=== PATIENT | female | born 1940 ===

== ENCOUNTER 2018-01-14 17:03 | Outpatient (CLI) | payer MEDICARE ==
[2018-01-14 17:29] LABS: Bilirubin Negative (Negative); Blood, Urine Moderate (Negative); Clarity Clear (Clear); Glucose, Urine (Dipstick) Negative (Negative); Leukocyte Negative (Negative); Nitrite Negative (Negative); Protein, Urine (Dipstick) Negative (Neg-Trace); Specific Gravity, Urine 1.015 (1.005-1.030); Urobilinogen 0.2 mg/dL (0.2-1.0)
[2018-01-14 17:52] LABS: Bacteria/HPF Rare-Few HPF (None Seen); Crystals/HPF 2+ AMORPH PHOS HPF (Negative); Squamous Epithelial 0-3 HPF (0-3); WBC/HPF 0-3 HPF (0-3)
== END 2018-01-14 17:04 | disposition home or self-care (01) ==
LOC: MADLAB 17:03
DX: N39.0 Urinary tract infection, site not specified (principal); R32 Unspecified urinary incontinence; R30.0 Dysuria
CPT/HCPCS: 81001; 87086